=== PATIENT | female | born 1990 | race Caucasian/White ===

== ENCOUNTER 2024-06-20 23:37 | Emergency (ER) | payer OTHER, SELFPAY ==
[2024-06-20 23:43] VITALS: BP 122/84
--- NOTE | 2024-06-21 00:18 | ED.GENMED ---
History of Present Illness
General
Chief Complaint: Musculo-Skeletal Complaint
Source: patient
Time Seen by Provider: 06/21/24 00:09
History of Present Illness
History of Present Illness:
Patient states that she struck her for second and third digits on the left foot on a rock while walking. Injury occurred 2 days ago. She continued to have pain. Pain is worse with walking. No other injuries.
Past History
Past History
ED Past Medical History: Asthma, Psychiatric (ADHD, anxiety) and Other (ECZEMA, RAYNAUDS)
ED Past Surgical History: None
Social History
Tobacco: Non-smoker
Alcohol: Occasional
Drug: None
Personal: Single
Living: with family
Employment: Employed (RN)
Family History
Family History: Other (Noncontributory)
Phy Exam
Physical Exam
Physical Exam:
General: Awake, Alert, Oriented X3. No acute distress.
Vitals: unremarkable
Head: Atraumatic
Eyes: Pupils equal, EOMI
Throat: Airway intact, no exudates
Neuro: Nonfocal
Skin: Warm, dry, no rash
Extremities: pulses equal b/l, no edema. Mild tenderness palpation at the base of the second toe left foot. No deformity noted
Course
Orders/Labs/Results
Orders:
Orders
06/20/24 23:40
Toes 2 Views, Left CR [CR Toe(s) Min 2 Vw Left] Urgent
Comment: GREAT AND SECOND TOES
Reason For Exam: JAMMED INTO A ROCK
Indicate Which Toe:: Great
06/21/24 00:20
Cast Shoe Left-Treatment ONCE
Vital Signs
Initial and Last Documented VS:
Initial Vital Signs
Temp Pulse Resp BP Pulse Ox
97.8 F 68 20 122/84 100
06/20/24 23:43 06/20/24 23:43 06/20/24 23:43 06/20/24 23:43 06/20/24 23:43
Last Documented Vital Signs
Temp Pulse Resp BP Pulse Ox
97.8 F 71 16 122/88 98
06/20/24 23:43 06/21/24 00:55 06/21/24 00:55 06/21/24 00:55 06/21/24 00:55
MDM/Problems Addressed
Differential Diagnosis Includes:
Fracture, sprain, contusion
MDM/Problems Addressed:
Imaging is negative for fracture. Symptomatic care follow-up podiatry if not
*Critical Care Note
Total Time (30-74mins, 75-104mins- exclusive of procedures): Not Applicable
ED Attending Note
-
Portions of this chart may have been created with voice recognition software.� Occasional wrong word or��sound alike� substitutions may have occurred due to the inherent limitations of voice recognition software.
Discharge Plan
Departure
Patient Disposition: Home (Routine Discharge)
Date of Disposition: 06/21/24
Time of Disposition: 00:18
Patient with high blood pressure during this ER visit?: No
Condition: Good
Discharge Problem:
Sprain of toe, second, left, Sprain of toe, great, left
Instructions: Toe Injury (DC)
Prescriptions:
No Action
dextroamphetamine-amphetamine [Adderall XR] 30 MG capsule,extended release 24hr
30 mg PO DAILY
cephalexin 500 mg capsule
500 mg PO BID 7 Days Qty: 14 0RF
sulfamethoxazole-trimethoprim [Bactrim DS] 800-160 mg tablet
1 tab PO BID Qty: 14 0RF
Referrals:
Shital Andrews DPM [Specified Professional Personl] -
Stand Alone Forms: Return to Work
Interventions
Interventions:
*Risk Screen - Suicide Last Done: 06/21/24 00:15
*General Assessment Last Done: 06/21/24 00:15
*Neglect/Abuse Screening Last Done: 06/21/24 00:15
ED- Fall Risk Assessment Last Done: 06/21/24 00:15
*ED COVID-19 Vaccine History Last Done: 06/21/24 00:15
*Nursing Disposition Last Done: 06/21/24 00:55
ED-Musculoskeletal Assessment Last Done: 06/21/24 00:15
Discharge Date and Time
Discharge Date/Time: 06/21/24 00:55
Print Language: UKRAINIAN
[2024-06-21 00:55] VITALS: BP 122/88
== END 2024-06-21 00:55 | disposition home or self-care (01) ==
LOC: EMR 23:37
PROVIDERS: EMERGENCY PHYSICIAN Emergency Medicine; FAMILY PHYSICIAN Family Medicine
DX: S93.502A Unspecified sprain of left great toe, initial encounter (principal); S93.505A Unspecified sprain of left lesser toe(s), initial encounter; W22.09XA Striking against other stationary object, initial encounter
CPT/HCPCS: 99283; 73660

== ENCOUNTER 2024-07-09 02:04 | Emergency (ER) | payer OTHER, SELFPAY ==
[2024-07-09 02:06] VITALS: BP 125/81
--- NOTE | 2024-07-09 02:25 | ED.GENMED ---
History of Present Illness
<BUNNY Noriega - Last Filed: 07/09/24 02:55>
General
Chief Complaint: Skin Problem
Source: patient
Time Seen by Provider: 07/09/24 02:15
Nursing documentation reviewed up to this point in time: agreed with
History of Present Illness
History of Present Illness:
Pt is a 34 yo F who presents to the emergency room for throbbing of the 2nd toe of the right foot. The patient states that the toe nail bed has appeared damaged for about a month. She reports that the toe began to throb and the skin surrounding the
toenail became erythematous tonight. She states that she took Ibuprofen earlier today for knee pain so she did not take more for the acute toe pain. She states the pain and throbbing is a 5/10. She reports that she walks a lot at work and denies any
trauma to the toe. Pt denies fever, chills, chest pain, pain in the right foot.
Past History
<BUNNY Noriega - Last Filed: 07/09/24 02:55>
Past History
ED Past Medical History: Asthma, Psychiatric (ADHD, anxiety) and Other (ECZEMA, RAYNAUDS)
ED Past Surgical History: None
Social History
Tobacco: Non-smoker
Alcohol: Occasional
Drug: None
Personal: Single
Living: with family
Employment: Employed (RN)
Family History
Family History: Other (Noncontributory)
Review of Systems
<BUNNY Noriega - Last Filed: 07/09/24 02:55>
Review of Systems
Allergies reviewed?: Yes
Constitutional: Reports no symptoms
EENT: Reports no symptoms
Respiratory: Reports no symptoms
Cardiac: Reports no symptoms
ABD/GI: Reports no symptoms
Skin: Reports other (erythema of 2nd right toe )
Phy Exam
<BUNNY Noriega - Last Filed: 07/09/24 02:55>
General Physical Exam
General Presentation: well appearing and no apparent distress
General age: appears stated age
General Skin: warm
General Habitus: normal
General Mental: alert
General Hydration: appears well hydrated
Skin Exam
Skin Exam: other (erythema and warmth surrounding the nail bed of the 2nd toe on the right foot)
Course
<BUNNY Noriega - Last Filed: 07/09/24 02:55>
Orders/Labs/Results
Orders:
Orders
07/09/24 02:38
Sulfamethox./Trimethoprim Ds [Bactrim Ds 800 mg/160 mg] 1 tablet PO NOW STA
Vital Signs
Initial and Last Documented VS:
Initial Vital Signs
Temp Pulse Resp BP Pulse Ox
97.6 F 64 16 125/81 100
07/09/24 02:06 07/09/24 02:06 07/09/24 02:06 07/09/24 02:06 07/09/24 02:06
Last Documented Vital Signs
Temp Pulse Resp BP Pulse Ox
97.6 F 64 16 125/81 100
07/09/24 02:06 07/09/24 02:06 07/09/24 02:06 07/09/24 02:06 07/09/24 02:06
<Christos Woodson DO - Last Filed: 07/09/24 02:58>
Orders/Labs/Results
Orders:
Orders
07/09/24 02:38
Sulfamethox./Trimethoprim Ds [Bactrim Ds 800 mg/160 mg] 1 tablet PO NOW STA
Vital Signs
Initial and Last Documented VS:
Initial Vital Signs
Temp Pulse Resp BP Pulse Ox
97.6 F 64 16 125/81 100
07/09/24 02:06 07/09/24 02:06 07/09/24 02:06 07/09/24 02:06 07/09/24 02:06
Last Documented Vital Signs
Temp Pulse Resp BP Pulse Ox
97.6 F 64 16 12581 100
07/09/24 02:06 07/09/24 02:06 07/09/24 02:06 07/09/24 02:06 07/09/24 02:06
<BUNNY Noriega - Last Filed: 07/09/24 02:55>
MDM/Problems Addressed
Differential Diagnosis Includes:
Paronychia, injury
MDM/Problems Addressed:
Pt is a 34 yo F who presents with throbbing, erythema, and warmth of the second toe on the right foot that began tonight. Pt denies known trauma to the toe and states that she walks a lot. She states that the nail bed of the second toe on the right
foot has looked damaged for about a month and she states that she cuts the toe nail.
Discussed with patient that the differential diagnosis of the early stage of paronychia is likely due to the warmth and erythema on the skin that is surrounding the nail bed of the second toe on the right foot. Explained to the patient that will
begin the patient on a course of Bactrim due to the likelihood of infection of the toe. Discussed that at this time, the toe does not need an incision and drainage due to this being early identification and starting with a treatment of an
antibiotic. Discussed with the patient to perform warm soaks on the toe. Explained to the patient that if she does not have any relief or improvement of symptoms, experiences swelling, pus discharge, continued redness and pain to come back to the
emergency department for drainage.
<Christos Woodson DO - Last Filed: 07/09/24 02:58>
MDM/Problems Addressed
Differential Diagnosis Includes:
Paronychia, injury, felon
<BUNNY Noriega - Last Filed: 07/09/24 02:55>
*Critical Care Note
Total Time (30-74mins, 75-104mins- exclusive of procedures): Not Applicable
ED Attending Note
<Alexus Enriquez STPA - Last Filed: 07/09/24 02:55>
-
Portions of this chart may have been created with voice recognition software.� Occasional wrong word or��sound alike� substitutions may have occurred due to the inherent limitations of voice recognition software.
<Christos Woodson, - Last Filed: 07/09/24 02:58>
ED Attending Note
Patient seen and examined by attending physician: Yes
I performed the substantive portion of visit, reviewed & personally made and approve the management plan that is documented in note by myself or GARETT.: Yes
ED Attending Note:
Pleasant 34-year-old female presents to the emergency department with second toe right foot pain. Patient has had toenail issues on this foot for about a month. She states that she started to develop pain today she described the pain as throbbing.
She noticed that the skin started turning red and was tender today. 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 She is concerned that because of the pain she may not be able to ambulate effectively. Patient was seen in conjunction with
the PA student. I have reviewed and agree with the history and treatment plan presented. On my independent physical exam, patient is awake, alert, and oriented x3. Second toe on the right foot is erythematous around the nailbed and is swollen.
It is not quite fluctuant but I feel that it is the beginning of a paronychia. Patient advised to do warm water soaks and she requested prophylactic antibiotics. I am in agreement with this.
Discharge Plan
Departure
Patient Disposition: Home (Routine Discharge)
Date of Disposition: 07/09/24
Time of Disposition: 02:50
Patient with high blood pressure during this ER visit?: Yes
Discharge Problem:
Paronychia
Instructions: Wound Care (DC), BLOOD PRESSURE, Skin Abscess
Prescriptions:
New
sulfamethoxazole-trimethoprim [Bactrim DS] 800-160 mg tablet
1 tab PO BID Qty: 20 0RF
No Action
dextroamphetamine-amphetamine [Adderall XR] 30 MG capsule,extended release 24hr
30 mg PO DAILY
cephalexin 500 mg capsule
500 mg PO BID 7 Days Qty: 14 0RF
sulfamethoxazole-trimethoprim [Bactrim DS] 800-160 mg tablet
1 tab PO BID Qty: 14 0RF
Referrals:
Wiley Laguerre DO [Family Provider] -
Keith Wilkes MD [Active] -
Stand Alone Forms: Return to Work
Activity Restrictions/Additional Instructions:
Your prescriptions were sent electronically to the pharmacy that you specified.
It was a pleasure meeting you and taking part in your care. We hope for your continued healing and wellness.
Please read discharge instructions in their entirety. However, they are for general education and may not describe your exact diagnosis at discharge. Information on your ER visit and medical conditions were discussed with you along with appropriate
follow up information...
If indicated, please take your medications as instructed and indicated on discharge paperwork.
Please schedule a follow up appointment as directed. Call to schedule an appointment
Please return to the emergency department with ANY change in, persisting, or worsening of symptoms. If any of your symptoms do not improve, or persist, or become more severe within 6-12 hours, please return to the emergency department for further
care.
Please return to the emergency department if you develop a headache, neck pain/stiffness, fever greater than 100.4F, chest pain, shortness of breath, persistent nausea, vomiting, slurred speech, difficulty walking, numbness/tingling, weakness, signs
of infection or any other symptoms that are worrisome to you.
If you have any questions or concerns please do not hesitate to call the Hospital at or E-mail me directly at [email or web address]
Interventions
Interventions:
*Risk Screen - Suicide Last Done: 07/09/24 02:06
*General Assessment Last Done: 07/09/24 02:06
*Neglect/Abuse Screening Last Done: 07/09/24 02:06
ED- Fall Risk Assessment Last Done: 07/09/24 02:06
*ED COVID-19 Vaccine History Last Done: 07/09/24 02:06
Discharge Date and Time
Print Language: SOUTH SUDANESE
[2024-07-09] MEDS: BACTRIM DS 800 MG/160 MG 1 TABLET PO (02:43)
== END 2024-07-09 03:02 | disposition home or self-care (01) ==
LOC: EMR 02:04
PROVIDERS: EMERGENCY PHYSICIAN Student in an Organized Health Care Education/Training Program; FAMILY PHYSICIAN Family Medicine
DX: L03.031 Cellulitis of right toe (principal); J45.909 Unspecified asthma, uncomplicated; F90.9 Attention-deficit hyperactivity disorder, unspecified type; F41.9 Anxiety disorder, unspecified; L30.9 Dermatitis, unspecified; I73.00 Raynaud's syndrome without gangrene
CPT/HCPCS: 99282

== ENCOUNTER 2025-02-13 18:00 | Emergency (ER) | payer OTHER, SELFPAY ==
[2025-02-13 18:03] VITALS: BP 134/87
[2025-02-13 18:31] LABS: Hematocrit 40.9 % (37.0-47.0); Hemoglobin 14.6 g/dL (12.0-16.0); Mean Corp Hgb Conc. 35.7 g/dL (33.0-37.0); Mean Corpuscular Volume 97.6 fL (81.0-99.0); Nucleated Red Blood Cells % 0 %; Platelet Count 184 10^3/uL (130-400); Red Cell Dist. Width 11.8 % (11.5-14.5)
[2025-02-13 18:52] LABS: ALT (SGPT) 18 U/L (0-35); AST (SGOT) 23 U/L (14-36); Albumin 4.8 g/dl (3.5-5.0); Alkaline Phosphatase 80 U/L (38-126); Blood Urea Nitrogen 17 mg/dl (7-17); Calcium 9.6 mg/dl (8.4-10.2); Carbon Dioxide 23 mmol/L (22-30); Chloride 106 mmol/L (98-107); Glucose 116 mg/dl (70-99); Potassium 4.3 mmol/L (3.5-5.1); Sodium 137 mmol/L (135-145); Total Protein 7.0 g/dl (6.3-8.2); eGFR > 60.00
--- NOTE | 2025-02-13 19:46 | ED.GENMED ---
History of Present Illness
General
Chief Complaint: Skin Problem
Time Seen by Provider: 02/13/25 19:45
History of Present Illness
History of Present Illness:
TIME OF INITIAL EVALUATION
- 7:50 PM
REVIEW OF OLD RECORDS
- History of eosinophilic asthma, celiac disease, Raynaud's, ADHD/anxiety. I reviewed records, the patient was seen here in 2023 related to a paronychia and she has also had asthma evaluations in the ED in the past.
Note:
CHIEF COMPLAINT(S)
- Elevated heart rate.
- Shortness of breath during physical activity.
- Possible fungal nail infection.
HISTORY OF PRESENT ILLNESS
The patient is a 34-year-old female who presents with a chief complaint of elevated heart rate and shortness of breath, which have been occurring for the past two to three weeks. She describes the sensation of a rapid heart rate and experiences
shortness of breath primarily during physical activities such as jogging, particularly on inclines. She denies any wheezing at rest but has a history of asthma.
She reports experiencing increased stress related to personal issues beginning approximately three weeks ago, acknowledging that stress or anxiety could contribute to her symptoms. She has no significant risk factors for blood clots and denies a
family history of pulmonary embolism, although her mother has had a stroke.
The patient denies alcohol and control use but admits to consuming caffeine, sometimes in excessive amounts. Additionally, she mentions noticing a potential fungal infection on her toenails and consulted her doctor about it, concerned it might
have led to a bloodstream infection. She has started applying a topical antifungal treatment, likely a lotrimazole, which she intends to continue.
Regarding cardiovascular health, her physician noted heart rates of 180-190 BPM during jogging, advising an emergency evaluation.
FAMILY HISTORY
Mother had a stroke.
REVIEW OF SYSTEMS
- Cardiovascular: Elevated heart rate.
- Respiratory: Shortness of breath on exertion.
- Dermatological: Potential fungal nail infection.
- Psychiatric: Reports stress-related issues.
PHYSICAL EXAM
General: Alert, no acute distress.
Skin: Warm, dry. Toenails: Possible fungal infection/onychomycosis at right second toenail noted.
Head: Normocephalic, atraumatic.
Neck: Supple, trachea midline.
Eye, Ears, Nose, Mouth, and Throat: Oral mucosa moist.
Cardiovascular: Normal peripheral perfusion, no edema.
Respiratory: Respirations are non-labored, no wheezing auscultated.
Gastrointestinal: Abdomen nondistended.
Back: Normal range of motion, normal alignment.
Musculoskeletal: Normal ROM, normal strength.
Neurological: Alert and oriented to person, place, time, and situation, no focal neurological deficit observed.
Psychiatric: Cooperative, but appears somewhat anxious
PLAN
- Consideration of D-Dimer test to rule out blood clot.
- Treatment for the fungal nail infection with continuous application of a topical antifungal agent, likely clotrimazole.
DIFFERENTIAL DIAGNOSIS
The Differential Diagnosis includes, in no particular order and is not limited to:
- Sinus tachycardia due to anxiety or excessive caffeine intake.
- Exercise-induced asthma or exacerbation of asthma.
- Undiagnosed arrhythmia.
- Hyperthyroidism.
- Panic disorder.
- Anemia.
- Pulmonary embolism (less likely without significant risk factors).
- Congestive heart failure.
- Pericarditis.
- Fungal nail infection leading to localized issues rather than systemic infection.
RADIOLOGY
-
EKG
- Sinus 87, rightward axis deviation, QTc 413 ms
LABS
- CBC is unremarkable, chemistries unremarkable, TSH is normal, D-dimer reassuring/negative
UPDATE
-SUMMARY OF ENCOUNTER
The patient, a 34-year-old female, presented with elevated heart rate and shortness of breath during physical activity over the last two to three weeks. Increased stress and excessive caffeine intake may be contributory factors. To rule out
conditions like pulmonary embolism, a D-Dimer test was performed and returned negative, effectively ruling out significant blood clot issues. Additional blood testing indicated normal thyroid function, and other blood work was unremarkable.
DISPOSITION
Discharge.
ASSESSMENT
Sinus tachycardia possibly due to anxiety and excessive caffeine intake; consider exercise-induced or exacerbated asthma.
PLAN
The patient will be discharged with no current indications for hospital admission. Further investigation into potential ongoing or chronic issues like stress-related causes or caffeine reduction will be advised.
INDEPENDENT REVIEW OF LABS AND INTERPRETATION OF TESTS
My independent review of the D-Dimer test is negative, ruling out a significant blood clot. My independent review of thyroid function tests is normal. Other blood work shows no significant abnormalities.
PATIENT EDUCATION AND COUNSELING
The patient was counseled on reducing caffeine intake, managing stress, and monitoring symptoms. It was advised to follow up with a primary care provider or specialist to evaluate for potential chronic issues.
FOLLOW-UP INSTRUCTIONS
The patient was advised to follow up with a primary care physician for further evaluation of stress and caffeine-related issues, as well as management of asthma symptoms if they persist.
MEDICATION RECONCILIATION
Continuous application of clotrimazole for the treatment of potential fungal nail infection, as previously directed.
MEDICAL DECISION MAKING
-Chronic conditions affecting care: The differential diagnosis includes sinus tachycardia due to anxiety or excessive caffeine intake, exercise-induced asthma, undiagnosed arrhythmia, hyperthyroidism, panic disorder, anemia, pulmonary embolism (less
likely), congestive heart failure, pericarditis, and fungal nail infection.
-Data:
Category 1: D-Dimer test ordered and reviewed was negative. Thyroid function test ordered and reviewed was normal. Other blood tests reviewed show no significant abnormalities.
-Risk: Consideration of Admission/Observation: Escalation of care including admission/observation was considered given the patients presenting complaints and potential asthma exacerbation. However, the patient is deemed safe for outpatient
management with close follow-up due to reassuring work-up results, stable vitals, and patient agreement with discharge.
DIAGNOSIS
- Sinus tachycardia (R00.0)
- Fungal nail infection (B35.1)
- Stress-related disorder (F43.8, unspecified if linked to physiological conditions)
Past History
Past History
ED Past Medical History: Asthma, Psychiatric (ADHD, anxiety) and Other (ECZEMA, RAYNAUDS)
ED Past Surgical History: None
Social History
Tobacco: Non-smoker
Alcohol: Occasional
Drug: None
Personal: Single
Living: with family
Employment: Employed (RN)
Family History
Family History: Other (Noncontributory)
Phy Exam
Physical Exam
Physical Exam:
See HPI
Course
Orders/Labs/Results
Orders:
Orders
02/13/25 18:06
ECG [Electrocardiogram (*1)] Urgent
Reason for Study: Tachycardia
EKG- Treatment ONCE
02/13/25 18:21
Complete Blood Count/With Diff Urgent
Comprehensive Metabolic Panel Urgent
TSH Reflex To Free T4 Urgent
02/13/25 20:02
D-Dimer Urgent
Abnormal Lab Results
02/13/25
18:21
RBC 4.19 L 10^6/uL
(4.20-5.40)
MCH 34.8 H pg
(27.0-31.0)
MPV 10.7 H fL
(7.4-10.4)
Absolute Neuts (auto) 7.8 H 10^3/uL
(1.4-6.5)
Neutrophils % 79.3 H %
(42.2-75.2)
Lymphocytes % 12.4 L %
(20.5-51.1)
Glucose 116 H mg/dl
(70-99)
02/13/25 18:21
02/13/25 18:21
Vital Signs
Initial and Last Documented VS:
Initial Vital Signs
Temp Pulse Resp BP Pulse Ox
36.8 C 86 16 134/87 100
02/13/25 18:03 02/13/25 18:03 02/13/25 18:03 02/13/25 18:03 02/13/25 18:03
Last Documented Vital Signs
Temp Pulse Resp BP Pulse Ox
36.8 C 86 16 134/87 100
02/13/25 18:03 02/13/25 18:03 02/13/25 18:03 02/13/25 18:03 02/13/25 19:47
*Pulse Oximetry
SaO2: 100
Oxygen Mode of Delivery: Room air
Patient hypoxic: not evaluated
*Critical Care Note
Total Time (30-74mins, 75-104mins- exclusive of procedures): Not Applicable
ED Attending Note
-
Portions of this chart may have been created with voice recognition software.� Occasional wrong word or��sound alike� substitutions may have occurred due to the inherent limitations of voice recognition software.
Discharge Plan
Departure
Prescriptions:
No Action
dextroamphetamine-amphetamine [Adderall XR] 30 MG capsule,extended release 24hr
30 mg PO DAILY
cephalexin 500 mg capsule
500 mg PO BID 7 Days Qty: 14 0RF
sulfamethoxazole-trimethoprim [Bactrim DS] 800-160 mg tablet
1 tab PO BID Qty: 14 0RF
sulfamethoxazole-trimethoprim [Bactrim DS] 800-160 mg tablet
1 tab PO BID Qty: 20 0RF
Referrals:
Wiley Laguerre DO [Family Provider, Family Practice]
Interventions
Interventions:
ED-Skin Assessment Last Done: 02/13/25 19:40
Discharge Date and Time
Print Language: BRAZILIAN
[2025-02-13 20:37] LABS: D-Dimer < 0.27 ug/mlFEU (0.00-0.50)
== END 2025-02-13 21:56 | disposition home or self-care (01) ==
LOC: EMR 18:00
PROVIDERS: EMERGENCY PHYSICIAN Emergency Medicine; FAMILY PHYSICIAN Family Medicine
DX: R00.2 Palpitations (principal); J82.83 Eosinophilic asthma; K90.0 Celiac disease; I73.00 Raynaud's syndrome without gangrene; F90.9 Attention-deficit hyperactivity disorder, unspecified type; F41.9 Anxiety disorder, unspecified; B35.1 Tinea unguium; Z82.3 Family history of stroke
CPT/HCPCS: 99283; 80053; 84443; 85025; 85379; 93005

== ENCOUNTER → 2025-04-16 08:01 | Outpatient (REF) | payer OTHER, SELFPAY | LOC: RCS 08:01 | PROVIDERS: ATTENDING PHYSICIAN Internal Medicine Cardiovascular Disease; FAMILY PHYSICIAN Family Medicine | DX: R00.2 Palpitations (principal) | CPT/HCPCS: 93306 ==